=== PATIENT | male | born 1975 | race Two or more races ===

== ENCOUNTER 2023-09-24 22:53 | Emergency (ER) | payer OTHER ==
[~2023-09-24] VITALS: Ht 167.6 cm; Wt 93.0 kg
[2023-09-25 01:10] VITALS: BP 149/94; PULSE 17; RESP 17; O2SAT 99
== END 2023-09-25 01:16 | disposition home or self-care (01) ==
LOC: ER 22:53
DX: S80.212A Abrasion, left knee, initial encounter (principal); M25.511 Pain in right shoulder; V89.2XXA Person injured in unspecified motor-vehicle accident, traffic, initial encounter; Y93.I9 Activity, other involving external motion; Y92.89 Other specified places as the place of occurrence of the external cause; Y99.8 Other external cause status
CPT/HCPCS: 70450; 71250; 72125; 74176